=== PATIENT | male | born 1985 | race Caucasian/White ===

== ENCOUNTER 2023-11-05 15:00 | Outpatient (RCR) | payer OTHER, SELFPAY | END 2023-11-05 23:59 | disposition home or self-care (01) | LOC: RPT 15:00 | PROVIDERS: ATTENDING PHYSICIAN Nurse Practitioner Family; FAMILY PHYSICIAN Internal Medicine | DX: M25.511 Pain in right shoulder (principal); Z73.6 Limitation of activities due to disability; M62.81 Muscle weakness (generalized) | CPT/HCPCS: 73030; 97110; 97140; 97161 ==

== ENCOUNTER 2023-11-08 12:18 | Outpatient (RCR) | payer OTHER, SELFPAY | END 2023-11-08 23:59 | disposition home or self-care (01) | LOC: RPT 12:18 | PROVIDERS: ATTENDING PHYSICIAN Nurse Practitioner Family; FAMILY PHYSICIAN Internal Medicine | DX: M25.511 Pain in right shoulder (principal); Z73.6 Limitation of activities due to disability | CPT/HCPCS: 97110 ==

== ENCOUNTER → 2023-12-07 16:00 | Outpatient (REF) | payer OTHER, SELFPAY | LOC: RCS 16:00 | PROVIDERS: ATTENDING PHYSICIAN Nurse Practitioner Family | DX: R07.89 Other chest pain (principal) | CPT/HCPCS: 71046; 93005 ==

== ENCOUNTER → 2024-01-17 13:12 | Outpatient (REF) | payer OTHER, SELFPAY | LOC: RAD 13:12 | PROVIDERS: ATTENDING PHYSICIAN Nurse Practitioner Family | DX: M54.2 Cervicalgia (principal) | CPT/HCPCS: 72050 ==

== ENCOUNTER → 2024-03-17 10:04 | Outpatient (REF) | payer OTHER, SELFPAY | LOC: RAD 10:04 | PROVIDERS: OTHER PHYSICIAN Specialist | DX: M25.512 Pain in left shoulder (principal) | CPT/HCPCS: 73030 ==

== ENCOUNTER → 2025-05-22 15:08 | Outpatient (REF) | payer BC, SELFPAY | LOC: PAVMRI 15:08 | PROVIDERS: ATTENDING PHYSICIAN Specialist; FAMILY PHYSICIAN Internal Medicine | DX: M25.511 Pain in right shoulder (principal); M25.512 Pain in left shoulder | CPT/HCPCS: 73221 ==

== ENCOUNTER 2025-06-25 14:32 | Emergency (ER) | payer OTHER, SELFPAY ==
[2025-06-25 14:34] VITALS: BP 125/89
--- NOTE | 2025-06-25 15:11 | ED.SKININJ ---
HPI-Injury
General
Chief Complaint: Bite
Time Seen by Provider: 06/25/25 14:49
History of Present Illness-Injury
Initial Injury comments:
40-year-old male presents to the emergency department for evaluation of bleeding from the left side of his tongue after he excellently bit his tongue.
Past History
Past History
ED Past Medical History: Psychiatric
ED Past Surgical History: Orthopedic
Social History
Tobacco: Non-smoker
Alcohol: Occasional
Drug: Marijuana
Living: with family
Review of Systems
Review of Systems
Allergies reviewed?: Yes
All Other Systems: ROS reviewed and negative except as documented in HPI and ROS
Phy Exam
Physical Exam
Physical Exam:
GEN: Well appearing, NAD, WDWN
HEENT: Oral mucosa moist, no scleral icterus, small laceration to the left lateral tongue with no active bleeding
Cardiac: Regular rate
Lung: No respiratory distress, no tachypnea
MSK: No gross deformity or injuries
Skin: Good color, no pallor or jaundice, no rashes
Neuro: AO x3, moves all extremities freely
Psych: Calm, cooperative
Course
Orders/Labs/Results
Orders:
Orders
06/25/25 14:57
Tranexamic Acid 1,000 mg .ROUTE .STK-MED ONE
Vital Signs
Initial and Last Documented VS:
Initial Vital Signs
Temp Pulse Resp BP Pulse Ox
97.9 F 79 18 125/89 97
06/25/25 14:34 06/25/25 14:34 06/25/25 14:34 06/25/25 14:34 06/25/25 14:34
Last Documented Vital Signs
Temp Pulse Resp BP Pulse Ox
97.9 F 79 18 125/89 97
06/25/25 14:34 06/25/25 14:34 06/25/25 14:34 06/25/25 14:34 06/25/25 15:12
MDM/Problems Addressed
MDM/Problems Addressed:
The wound was soaked with TXA gauze for 10 minutes, hemostasis achieved
*Pulse Oximetry
SaO2: 97
Oxygen Mode of Delivery: Room air
Patient hypoxic: no
*Critical Care Note
Total Time (30-74mins, 75-104mins- exclusive of procedures): Not Applicable
ED Attending Note
-
Portions of this chart may have been created with voice recognition software.� Occasional wrong word or��sound alike� substitutions may have occurred due to the inherent limitations of voice recognition software.
Discharge Plan
Departure
Patient Disposition: Home (Routine Discharge)
Date of Disposition: 06/25/25
Time of Disposition: 15:11
Patient with high blood pressure during this ER visit?: No
Discharge Problem:
Laceration of tongue
Prescriptions:
No Action
quetiapine 100 MG tablet
1 tab PO HS
escitalopram oxalate 20 MG tablet
20 mg PO DAILY
Epidiolex 1 UNIT solution
1 unit PO DAILY
albuterol sulfate 90 mcg/actuation Hfa Aerosol Inhaler
1 inh INHALATION PRN PRN (Reason: shortness of breath)
naproxen sodium [Aleve] 220 mg Capsule
220 mg PO BID PRN (Reason: pain)
Fish Oil
1 tab PO DAILY
Vitamin D3
1 tab PO DAILY
tramadol 50 mg tablet
50 - 100 mg PO Q6HPRN PRN (Reason: severe pain/breakthrough pain) Qty: 10 0RF
acetaminophen [Tylenol Extra Strength] 500 mg tablet
1,000 mg PO Q6HPRN PRN (Reason: mild pain) Qty: 1 0RF
Referrals:
Jorge Javier MD [Family Provider, Internal Medicine]
Activity Restrictions/Additional Instructions:
No eating for the next 2 hours
You may drink as normal
You may ice the tongue to help reduce any further bleeding as well
Interventions
Interventions:
[facility] Risk Assessment Tool Last Done: 06/25/25 15:12
*Risk Screen - Suicide (C-SSRS) Last Done: 06/25/25 14:36
*Nursing Disposition Last Done: 06/25/25 15:14
ED-Skin Assessment Last Done: 06/25/25 15:13
Discharge Date and Time
Discharge Date/Time: 06/25/25 15:14
Print Language: NAURUAN
== END 2025-06-25 15:14 | disposition home or self-care (01) ==
LOC: EMR 14:32
PROVIDERS: EMERGENCY PHYSICIAN Emergency Medicine; FAMILY PHYSICIAN Internal Medicine
DX: S01.512A Laceration without foreign body of oral cavity, initial encounter (principal); X58.XXXA Exposure to other specified factors, initial encounter
CPT/HCPCS: 99282